=== PATIENT | female | born 1970 | race Caucasian/White ===

== ENCOUNTER 2019-11-02 14:26 | Outpatient (CLI) | payer BC ==
--- NOTE | 2019-11-02 16:16 | MMO ---
Bilateral MAMMO Bilat Diag [facility]. CLINICAL HISTORY: Patient is 49 years old and is seen for diagnostic exam. The patient has the following family history of breast cancer: mother, at age 71, malignant (generic). The patient has a history of malignant (generic) in the right breast at age 48. 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 VIEWS: The views performed were: bilateral craniocaudal with tomosynthesis; bilateral mediolateral with tomosynthesis; bilateral mediolateral oblique with tomosynthesis; left mediolateral spot compression; left mediolateral oblique spot compression; and left exaggerated craniocaudal. FILMS COMPARED: The present examination has been compared to prior imaging studies performed at [facility] on 11/02/2019, and at [facility] on 01/13/2018, 10/26/2018 and 05/12/2019. This study has been interpreted with the assistance of computer-aided detection. MAMMOGRAM FINDINGS: There are scattered fibroglandular densities. Finding 1: There is a focal asymmetry seen in the left breast. This is in the upper outer aspect of the left breast approximately 13.5cm from the nipple. It is not definitively changed when compared to standard views from 2018. It is slightly more conspicuous on the spot imaging however. This may be technical. Focused ultrasound is unremarkable. Recommend 6 month follow up diagnostic mammogram of the left breast. Finding 2: There is a stable post-surgical scar seen in the right breast. IMPRESSION: FINDING 1: FOCAL ASYMMETRY IN THE LEFT BREAST IS PROBABLY BENIGN. FOLLOW-UP IN 6 MONTHS IS RECOMMENDED. FINDING 2: STABLE POST-SURGICAL SCAR IN THE RIGHT BREAST IS BENIGN. THE RESULTS OF THIS EXAM WERE SENT TO THE PATIENT. ACR BI-RADS Category 3 - Probably benign finding - short interval follow-up suggested. [facility] will notify the patient of the need for additional imaging services. Recommend follow up diagnostic mammogram on the left in 6 months. MAMMOGRAPHY NOTE: 1. A negative mammogram report should not delay a biopsy if a dominant of clinically suspicious mass is present. 2. Approximately 10% to 15% of breast cancers are not detected by mammography. 3. Adenosis and dense breasts may obscure an underlying neoplasm. Reported by: JAYSON TORRES MD Electonically Signed: [id number]
--- NOTE | 2019-11-02 18:20 | ULT ---
FOCUSED ULTRASOUND OF THE LEFT BREAST 11/02/19 HISTORY: 49-year-old female with a past history of right breast cancer. There is a subtle asymmetric density i n the upper outer aspect of the left breast on recent mammography measuring 4-5 mm. FINDINGS: Focused ultrasound of the upper outer left breast was performed. No sonographic abnormality is seen. No solid mass or abnormal shadowing. IMPRESSION: BIRADS 3: Probably Benign Finding Initial Short-Interval Follow-Up Suggested Initial short-term follow up (usually 6-month) examination. The asymmetric density within the left breast should be further evaluated with a follow-up diagnostic mammogram in 6 months. Findings are recommendation for follow-up mammography discussed with the hua ent at the time of interpretation.
== END 2019-11-02 14:27 | disposition home or self-care (01) ==
LOC: BICMAMMO 14:26
PROVIDERS: ATTEND Surgery
DX: C50.119 Malignant neoplasm of central portion of unspecified female breast (principal); N64.89 Other specified disorders of breast; R92.8 Other abnormal and inconclusive findings on diagnostic imaging of breast; Z85.3 Personal history of malignant neoplasm of breast; Z98.890 Other specified postprocedural states
CPT/HCPCS: 77066; G0279